=== PATIENT | female | born 1995 | race Caucasian/White ===

== ENCOUNTER 2017-04-04 01:01 | Emergency (ER) | payer OTHER ==
[~2017-04-04] VITALS: Ht 167.6 cm; Wt 73.6 kg
[2017-04-04 01:15] VITALS: BP 120/83; PULSE 88; RESP 16; TEMP 97.4; O2SAT 100
[2017-04-04] MEDS ORDERED: LAMO25 PO (01:28)
[2017-04-04] MEDS ORDERED: PROZ20CA11 PO (01:28)
[2017-04-04] MEDS ORDERED: SODIUM CHLORIDE 0.9% FLUSH 10 ML FLUSH IV FLUSH PRN (01:30)
[2017-04-04] MEDS ORDERED: LORazepam 2 MG/ML VIAL IV PUSH ONE (01:30)
--- NOTE | 2017-04-04 01:30 | PD ---
HPI Chief Complaint: Anxiety Time Seen by Provider: 01:21 Travel History International Travel<30 days: No Contact w/Intl Traveler<30days: No Traveled to known affect area: No History of Present Illness HPI 22-year-old female with history of anxiety, started on fluoxetine and lamotigrine in about 6 days ago for her anxiety, here for evaluation of feeling jittery, anxious, and unable to sleep. The patient believes that this may be a side effect from her medication. She denies suicidality. No chest pain or dyspnea. She is unsure if she is having any fevers. No abdominal pain. PFSH Social History Tobacco Use: No Allergies-Medications (Allergen,Severity, Reaction): Coded Allergies: No Known Allergies (Unverified , 04/04/17) Reported Meds & Prescriptions Reported Meds & Active Scripts Active Reported Lamictal (Lamotrigine) 25 Mg Tab 25 Mg PO DAILY Prozac (Fluoxetine HCl) 20 Mg Cap 20 Mg PO DAILY Review of Systems Except as stated in HPI: all other systems reviewed are Neg Physical Exam Narrative GENERAL: Well-developed, well-nourished, comfortable, no apparent distress. SKIN: Focused skin assessment warm/dry. No rash. No pallor. HEAD: Atraumatic. Normocephalic. EYES: Pupils equal and round. No scleral icterus. No injection or drainage. ENT: Mucous membranes pink and moist. NECK: Trachea midline. No JVD. CARDIOVASCULAR: Regular rate and rhythm. No murmur appreciated. RESPIRATORY: No accessory muscle use. Clear to auscultation. Breath sounds equal bilaterally. GASTROINTESTINAL: Abdomen soft, non-tender, nondistended. MUSCULOSKELETAL: No obvious deformities. No clubbing. No cyanosis. No edema. NEUROLOGICAL: Awake and alert. No obvious cranial nerve deficits. Motor grossly within normal limits. Normal speech. PSYCHIATRIC: Appropriate mood and affect; insight and judgment normal. Data Data Last Documented VS Vital Signs Date Time Temp Pulse Resp B/P (MAP) Pulse Ox O2 Delivery O2 Flow Rate FiO2 04/04/17 02:06 04/04/17 01:15 97.4 88 16 100 Orders Orders Sodium Chloride 0.9% Flush (Ns Flush) (04/04/17 01:30) Ed Urine Pregnancytest Poc (04/04/17 01:26) Lorazepam Inj (Ativan Inj) (04/04/17 01:30) Lorazepam (Ativan) (04/04/17 01:45) MDM Medical Decision Making Medical Screen Exam Complete: Yes Emergency Medical Condition: Yes Differential Diagnosis Anxiety, medication side effect Narrative Course Vital signs are within normal limits. After discussing plan for lab work, patient was initially amenable, however she decided that she no longer needs labs and feels improved and would like something to calm her down. I will give her a dose of Ativan. I believe her symptoms are more likely anxiety related. She was instructed to follow-up with her primary care physician this week. She was informed on when to return to the emergency department. She verbalizes understanding and agreement with plan. Diagnosis Primary Impression: Anxiety Referrals: Primary Care Physician 3 days Additional Instructions: Follow-up with your primary care physician this week. Return to the emergency department for worsening symptoms or any other concerns. Disposition: 01 DISCHARGE HOME Condition: Carlo Rahman MD Apr 04, 2017 01:30
[2017-04-04] MEDS ORDERED: LORazepam 1 MG TAB PO ONE (01:45)
== END 2017-04-04 02:08 | disposition home or self-care (01) ==
LOC: PHED 01:01
DX: F41.9 Anxiety disorder, unspecified (principal)
CPT/HCPCS: 84703; 99283